=== PATIENT | female | born 1975 | race Caucasian/White ===

== ENCOUNTER → 2019-08-10 | Outpatient (CLI) | payer BC | LOC: MC.RAD 06:59 | DX: Z12.31 Encounter for screening mammogram for malignant neoplasm of breast (principal) ==

== ENCOUNTER 2021-10-13 11:00 | Emergency (ER) | payer OTHER ==
[~2021-10-13] VITALS: Ht 170.2 cm; Wt 145.5 kg
[2021-10-13 11:16] VITALS: TEMP 98.9
[2021-10-13] MEDS ORDERED: ZOLOFT 100MG100 MG PO (11:20)
[2021-10-13] MEDS ORDERED: WELLBUTRIN XL300 M1 PO (11:20)
[2021-10-13] MEDS ORDERED: VITAMIND3 5000 PO ×2 (11:21→11:22)
[2021-10-13] MEDS ORDERED: WOMEN'S DAILY1 TAB PO (11:22)
[2021-10-13 11:43] LABS: BASO # 0.1 K/mm3 (0.0-0.2); BASO % 0.9 % (0.0-2.0); EOS # 0.2 K/mm3 (0.0-0.7); EOS % 3.7 % (0.0-4.0); GRAN # 3.6 K/mm3 (1.4-6.5); GRAN % 54.8 % (42.2-75.2); HEMATOCRIT 42.8 % (37.0-47.0); HEMOGLOBIN 13.9 g/dl (12.5-16.0); LYMPH % 30.5 % (20.0-51.0); MEAN CELL VOLUME 85 fl (80.0-100.0); MEAN CORPUSCULAR HEMOGLOBIN 28 pg (27-31); MEAN CORPUSCULAR HGB CONC 33 g/dl (33.0-37.0); MEAN PLATELET VOLUME 8.9 fl (7.4-10.4); MONO # 0.6 K/mm3 (0.1-0.6); MONO % 9.8 % (1.7-9.3); PLATELET COUNT 259 K/mm3 (130-400); RED BLOOD COUNT 5.04 M/mm3 (4.10-5.30); REDCELL DISTRIBUTION WIDTH-CV 13.6 % (11.5-14.5)
[2021-10-13 11:52] LABS: PROTHROMBIN TIME 11.5 SECONDS (9.7-12.8)
[2021-10-13 11:59] LABS: ALANINE AMINOTRANSFERASE 19 U/L (0-55); ALBUMIN 3.8 gm/dL (3.5-5.0); ALKALINE PHOSPHATASE 83 U/L (40-150); AST,SGOT 16 U/L (5-34); BILIRUBIN,TOTAL 0.3 mg/dL (0.2-1.2); BLOOD UREA NITROGEN 16 mg/dL (7-19); C-REACTIVE PROTEIN 0.86 mg/dL (0.00-0.50); CALCIUM 9.8 mg/dL (8.4-10.2); CARBON DIOXIDE 25 mmol/L (22-29); CREATININE, serum 0.81 mg/dL (0.57-1.11); GLUCOSE 102 mg/dL (70-99); TOTAL PROTEIN 7.7 gm/dL (6.2-8.1)
[2021-10-13 12:08] LABS: TROPONIN-I < 0.010 ng/mL (0.00-0.033)
[2021-10-13 12:10] LABS: ANION GAP 9 mmol/L (7-16); CHLORIDE 103 mmol/L (98-107); POTASSIUM 3.7 mmol/L (3.5-4.5); SODIUM 137 mmol/L (136-145)
[2021-10-13 12:32] VITALS: BP 134/84; PULSE 90
== END 2021-10-13 12:42 | disposition home or self-care (01) ==
LOC: COL.ER 11:00
PROVIDERS: Nurse Practitioner Primary Care
DX: R20.2 Paresthesia of skin (principal); R03.0 Elevated blood-pressure reading, without diagnosis of hypertension; E66.9 Obesity, unspecified; Z68.43 Body mass index [BMI] 50.0-59.9, adult

== ENCOUNTER → 2022-01-01 | Outpatient (CLI) | payer OTHER ==
[~2022-01-01] MED LIST: VITAMIND3 5000 PO; WELLBUTRIN XL300 M1 PO; WOMEN'S DAILY1 TAB PO; ZOLOFT 100MG100 MG PO
== END ==
LOC: MC.RAD 14:34
DX: Z12.31 Encounter for screening mammogram for malignant neoplasm of breast (principal)

== ENCOUNTER 2022-04-02 06:21 | Day surgery (SDC) | payer OTHER ==
[~2022-04-02] VITALS: Ht 170.2 cm; Wt 151.8 kg
[2022-04-02 07:06] VITALS: BP 138/90; PULSE 99; TEMP 97.4
[2022-04-02 08:35] VITALS: BP 127/96; PULSE 86; TEMP 96.2
[2022-04-02 08:50] VITALS: BP 123/79; PULSE 82
--- NOTE | 2022-04-02 08:50 | NUR ---
AWAKE, ALERT. DENIES PAIN OR NAUSEA. IN ROOM. PATIENT TOLERATES PO JUICE AND MUFFIN WITHOUT NAUSEA.
--- NOTE | 2022-04-02 08:55 | NUR ---
ARRIVES IN POST PROCEDURE AREA. PATIENT AMBULATES FROM CART TO BATHROOM, THEN TO RECLINER WITH STAND BY ASSIST. ALERT/ORIENTED. DENIES NAUSEA OR ABD PAIN.
--- NOTE | 2022-04-02 09:00 | NUR ---
DR. OLIVEROS IN TO VISIT WITH PATIENT AND
[2022-04-02 09:05] VITALS: BP 121/76; PULSE 80
--- NOTE | 2022-04-02 09:10 | NUR ---
DISCHARGE INSTRUCTIONS REVIEWED WITH PATIENT AND VERBALIZING UNDERSTANDING. COPY OF INSTRUCTIONS AND EDUCATIONAL MATERIALS PROVIDED TO PATIENT.
--- NOTE | 2022-04-02 09:15 | NUR ---
AWAKE, ALERT, DRESSES SELF
--- NOTE | 2022-04-02 09:20 | NUR ---
DISCHARGE PER WHEELCHAIR ACCOMPANIED BY THIS NURSE. ASSISTED TO PASSENGER SEAL OF TRUCK BEING DRIVEN BY
== END 2022-04-02 09:20 | disposition home or self-care (01) ==
LOC: SDCO 06:21
DX: Z12.11 Encounter for screening for malignant neoplasm of colon (principal); D12.5 Benign neoplasm of sigmoid colon; E66.01 Morbid (severe) obesity due to excess calories
CPT/HCPCS: J2704; J7030

== ENCOUNTER → 2024-05-09 | Outpatient (CLI) | payer OTHER | LOC: MHCPAIN 14:37 | DX: M54.12 Radiculopathy, cervical region (principal); M50.30 Other cervical disc degeneration, unspecified cervical region | CPT/HCPCS: G0463 ==

== ENCOUNTER → 2024-06-05 | Outpatient (CLI) | payer OTHER ==
[~2024-06-05] MED LIST changes: +Iohexol 300 - 10 ML VIAL ONE; +Lidocaine PF 2% (20 MG/ML) 2 ML VIAL ONE
== END ==
LOC: MHCPAIN 08:38
DX: M54.12 Radiculopathy, cervical region (principal)
CPT/HCPCS: J1100; Q9967

== ENCOUNTER → 2024-07-11 | Outpatient (CLI) | payer OTHER ==
[~2024-07-11] MED LIST changes: -Iohexol 300 - 10 ML VIAL ONE; -Lidocaine PF 2% (20 MG/ML) 2 ML VIAL ONE
== END ==
LOC: MHCPAIN 10:48
DX: M54.12 Radiculopathy, cervical region (principal); M50.30 Other cervical disc degeneration, unspecified cervical region
CPT/HCPCS: G0463